=== PATIENT | female | born 1940 | race Hispanic/Latino ===

== ENCOUNTER 2018-11-23 12:59 | Emergency (ER) | payer OTHER ==
[2018-11-23 13:49] LABS: BASOPHILS % (AUTO) 0.8 % (0.0-5.0); EOSINOPHILS % (AUTO) 1.3 % (0.0-8.0); HEMATOCRIT 31.5 % (36-48); MEAN CORPUSCULAR HEMOGLOBIN 27.6 pg (27.0-33.0); MEAN CORPUSCULAR HGB CONC 34.3 g/dL (32.0-36.0); MEAN CORPUSCULAR VOLUME 80.4 fL (79-99); MONOCYTES % (AUTO) 6.9 % (3.0-13.0); PLATELET COUNT (AUTO) 298 K/uL (130-400); RED BLOOD CELL COUNT(AUTO) 3.91 MIL/uL (4.00-5.50); RED CELL DISTRIBUTION WIDTH 14.4 % (11.0-15.5); WHITE BLOOD COUNT (AUTO) 9.1 K/uL (4.8-10.8)
[2018-11-23 13:57] LABS: CREATININE 1.1 mg/dL (0.5-1.5); POTASSIUM 3.6 mmol/L (3.5-5.1)
[2018-11-23 14:00] LABS: INR 0.93 (0.85-1.15); PARTIAL THROMBOPLASTIN TIME 23.6 SEC (26.3-35.5); PROTHROMBIN TIME 9.8 SEC (9.6-11.6)
[2018-11-23 14:03] LABS: ALBUMIN 3.8 g/dL (3.5-5.0); BILIRUBIN,TOTAL 0.4 mg/dL (0.2-1.0); TOTAL PROTEIN, SERUM 7.1 g/dL (6.0-8.3)
[2018-11-23 14:09] LABS: B-TYPE NATRIURETIC PEPTIDE 85 pg/mL (0-100)
[2018-11-23 14:44] LABS: APPEARANCE,URINE Clear (CLEAR); BILIRUBIN,URINE Negative (NEGATIVE); COLOR,URINE Yellow (YELLOW); GLUCOSE, URINE (UA) Negative (NEGATIVE); KETONES,URINE Negative (NEGATIVE); LEUKOCYTE ESTERASE ,URINE Large (NEGATIVE); NITRATE,URINE Negative (NEGATIVE); OCCULT BLOOD,URINE Negative (NEGATIVE); PH,URINE 7.5 (5.0-8.0); PROTEIN,URINE Trace mg/dL (NEGATIVE)
[2018-11-23 14:52] LABS: BACTERIA,URINE Few /HPF (None Seen); RBC,URINE 0-1 /HPF (0-1); SQUAMOUS EPITHELIAL CELL,UR Few /HPF (0-2)
== END 2018-11-23 16:59 | disposition home or self-care (01) ==
LOC: EDH 12:59
DX: R06.02 Shortness of breath (principal); R00.1 Bradycardia, unspecified; I10 Essential (primary) hypertension; E11.9 Type 2 diabetes mellitus without complications
CPT/HCPCS: 36415; 71045; 80053; 81001; 82550; 83880; 84484; 85025; 85610; 85730; 93005

== ENCOUNTER 2018-12-22 07:24 | Day surgery (SDC) | payer MEDICARE ==
[2018-12-20 11:24] LABS: BASOPHILS % (AUTO) 0.7 % (0.0-5.0); EOSINOPHILS % (AUTO) 1.6 % (0.0-8.0); HEMATOCRIT 33.9 % (36-48); LYMPHOCYTES % (AUTO) 17.9 % (21.0-51.0); MEAN CORPUSCULAR HEMOGLOBIN 27.3 pg (27.0-33.0); MEAN CORPUSCULAR HGB CONC 33.7 g/dL (32.0-36.0); MEAN CORPUSCULAR VOLUME 81.1 fL (79-99); MONOCYTES % (AUTO) 6.7 % (3.0-13.0); NEUTROPHILS % (AUTO) 73.1 % (40.0-77.0); NUCLEATED RED BLOOD CELLS 0.1 % (0.0-0.19); PLATELET COUNT (AUTO) 360 K/uL (130-400); RED BLOOD CELL COUNT(AUTO) 4.18 MIL/uL (4.00-5.50); RED CELL DISTRIBUTION WIDTH 14.4 % (11.0-15.5); WHITE BLOOD COUNT (AUTO) 11.6 K/uL (4.8-10.8)
[2018-12-20 11:31] LABS: APPEARANCE,URINE Clear (CLEAR); BILIRUBIN,URINE Negative (NEGATIVE); COLOR,URINE Yellow (YELLOW); GLUCOSE, URINE (UA) TRACE mg/dL (NEGATIVE); KETONES,URINE Negative (NEGATIVE); LEUKOCYTE ESTERASE ,URINE Small (NEGATIVE); NITRATE,URINE Negative (NEGATIVE); OCCULT BLOOD,URINE Negative (NEGATIVE); PROTEIN,URINE POS 1+ mg/dL (NEGATIVE); UROBILINOGEN,URINE 0.2 mg/dL (0.2-1.0)
[2018-12-20 11:34] LABS: CREATININE 1.1 mg/dL (0.5-1.5)
[2018-12-20 11:39] LABS: INR 0.91 (0.85-1.15); PARTIAL THROMBOPLASTIN TIME 24.3 SEC (26.3-35.5); PROTHROMBIN TIME 9.6 SEC (9.6-11.6)
[2018-12-20 11:50] LABS: RBC,URINE None Seen /HPF (0-1)
[2018-12-20 11:51] LABS: BACTERIA,URINE None Seen /HPF (None Seen); TRANSITIONAL EPI CELLS,URINE Few /HPF (None Seen)
[2018-12-20 12:13] VITALS: BP 160/68
--- NOTE | 2018-12-21 15:54 | NUR ---
LABS ABNORMAL LABS REPORTED TO LORENZO SAENZ WITH DR. GO, NO FURTHER ORDERS GIVEN , OK TO PROCEED WITH PROCEDURE
[~2018-12-22] VITALS: Ht 160 cm; Wt 85.5 kg
[2018-12-22] VITALS (10 sets, daily range): BP systolic 124–146; BP diastolic 46–63
[~2018-12-22 07:24] MED LIST: AMLO10TA7 PO; ASPI-1181 PO; ATOR20TA65 PO; FERR325T22 PO; FLUT16H NASAL; GLIP5TAB11 PO; HYDR100T27 PO; HYDR12.54 PO; ISOS30TA6 PO; LORA10TA7 PO; METF-446 PO; MONT10TA24 PO; NITR0.4T50 SL; SODIUM CHLORIDE 0.9% 500ML 500 ML IV SCH
--- NOTE | 2018-12-22 07:32 | NUR ---
PATIENT ARRIVED PATIENT ARRIVED TO DAY PATIENT ACCOMPANIED BY DAUGHTER. PATIENT AAOX3, RESPIRATIONS UNLABORED, VITAL SIGNS STABLE, DENIES ANY PAIN. PROCEDURE CONFIRMED/VERIFIED WITH PATIENT AND PATIENT'S DAUGHTER. HOSPITAL ROUTINE EXPLAINED TO PATIENT/DAUGHTER, BOTH VERBALIZED UNDERSTANDING.
--- NOTE | 2018-12-22 11:35 | NUR ---
PATIENT TRANSFERRED PATIENT TAKEN TO TRIM MECHANIC VIA BED, DAUGHTER INSTRUCTED TO STAY IN ROOM IN ORDER TO SPEAK WITH MD FOLLOWING THE PROCEDURE. DAUGHTER VERBALIZED UNDERSTANDING.
[2018-12-22] MEDS ORDERED: IOHEXOL-350 50ML VIAL IV ONE ×2 (11:45→12:29)
[2018-12-22] MEDS ORDERED: IOHEXOL-350 75 ML VIAL IV ONE ×2 (11:45→12:52)
[2018-12-22] MEDS ORDERED: HEPARIN SODIUM 1000UNIT/ML 10ML VIAL ONE (11:45)
[2018-12-22] MEDS ORDERED: NITROGLYCERIN 5 MG/ML 10 ML VIAL IV ONE (11:45)
[2018-12-22] MEDS ORDERED: LIDOCAINE HCL 2% 20ML ONE (11:45)
[2018-12-22] MEDS ORDERED: NICARDIPINE HCL 25 MG/10 ML ML IV ONE (11:46)
[2018-12-22] MEDS ORDERED: FENTANYL CITRATE PF 50 MCG/1 ML 2ML VIAL ONE (12:04)
[2018-12-22] MEDS ORDERED: MIDAZOLAM HCL 1 MG/ML 2ML VIAL ONE (12:04)
[2018-12-22] MEDS ORDERED: TICAGRELOR 90 MG TABLET ONE (13:08)
[2018-12-22] MEDS ORDERED: ASPIRIN 325MG EC TAB 325 MG TABLET.DR PO ONE (13:09)
[2018-12-22] MEDS ORDERED: SODIUM CHLORIDE 0.9% 1000ML 1,000 ML IV SCH (13:26)
--- NOTE | 2018-12-22 20:08 | NUR ---
COMMENCED REMOVING AIR FROM TR BAND RIGHT ARM AT 1530 , REMOVED 2ML AT 1545 , 2ML AT 1600, 2ML AT 1615, 2ML AT 1630,2ML AT 1645 NOTED BLEEDING INJECTED 4ML TO ACHIEVE NO BLEEDING ( TOTAL OF 14ML TO RESTART) AT 1715 REMOVED 2ML NO BLEEDING NOTED, REMOVED 2ML AT 1730 NO BLEEDING NOTED, 2ML REMOVED 1745, 2ML REMOVED 1800, 2ML REMOVED AT 1815 REMOVED 1ML, NO BLEEDING NOTED FOR REMOVAL OF 17ML FROM TR BAND . PT STABLE NO CONCERNS, FAMILY AT BEDSIDE.
[2018-12-22] MEDS ORDERED: TICAGRELOR 90 MG TABLET PO SCH (21:00)
[2018-12-23] MEDS ORDERED: ASPIRIN 81MG TAB.CHEW PO SCH (09:00)
== END 2018-12-22 20:00 | disposition home or self-care (01) ==
LOC: DAH 07:24
PROVIDERS: ATTEND Internal Medicine Cardiovascular Disease
DX: R94.39 Abnormal result of other cardiovascular function study (principal); I25.118 Atherosclerotic heart disease of native coronary artery with other forms of angina pectoris; I10 Essential (primary) hypertension; E11.9 Type 2 diabetes mellitus without complications; Z79.84 Long term (current) use of oral hypoglycemic drugs; Z79.899 Other long term (current) drug therapy; Z79.01 Long term (current) use of anticoagulants; Z98.890 Other specified postprocedural states; Z82.49 Family history of ischemic heart disease and other diseases of the circulatory system
CPT/HCPCS: 36415; 71045; 80048; 81001; 82948 ×3; 85025; 85610; 85730; 93005 ×2; 93458; A4215; A4216; A4221; A4222; A4223 ×3; A4606; A4663; C1769 ×3; C1876; C1887; C1894 ×2; C9600; J1644 ×2; J2250; J3010; J3490 ×3; Q9967 ×4; 99156; 99157